=== PATIENT | male | born 1925 | race Caucasian/White ===

== ENCOUNTER 2016-12-14 08:09 | Outpatient (CLI) | payer MEDICARE ==
[2016-12-14 08:53] LABS: ALT (SGPT) 19 U/L (0-55); AST (SGOT) 27 U/L (5-34); Alkaline Phosphatase 66 U/L (40-150); Anion Gap 15 mmol/L (10-20); BUN (Urea Nitrogen) 21 mg/dL (8.4-25.7); Calc. Creatinine Clearance 0 mL/min (70-130); Calcium 9.7 mg/dL (7.8-10.44); Carbon Dioxide 34 mmol/L (23-31); Cardiac Risk 2.3 (Less than 4.5); Chloride 98 mmol/L (98-107); Cholesterol 126 mg/dL (< 200 Desired); Estimated GFR-MDRD 71; Globulin 2.5 g/dL (2.4-3.5); Glucose 110 mg/dL (83-110); HDL Cholesterol 55 mg/dL (>60 Neg Risk); LDL Cholesterol, Calculated 60 mg/dL; Potassium 3.3 mmol/L (3.5-5.1); Protein, Total 6.5 g/dL (5.8-8.1); Sodium 144 mmol/L (136-145); Triglycerides 56 mg/dL (Less than 150)
== END 2016-12-14 08:10 ==
LOC: MADLAB 08:09
PROVIDERS: ATTEND Internal Medicine Cardiovascular Disease
DX: E78.00 Pure hypercholesterolemia, unspecified (principal)
CPT/HCPCS: 36415; 80053; 80061

== ENCOUNTER 2017-07-04 03:14 | Emergency (ER) | payer MEDICARE ==
[2017-07-04] MEDS ORDERED: Albuterol Sulfate 2.5 mg/0.5 ml Neb ONE (03:41)
[2017-07-04] MEDS ORDERED: Furosemide 40 MG/4 ML VIAL ONE (03:41)
[2017-07-04 03:44] LABS: #Basophils 0.1 thou/uL (0.0-0.2); #Eosinphils 0.1 thou/uL (0.0-0.7); #Lymphocytes 1.9 thou/uL (1.20-3.40); #Monocytes 0.5 thou/uL (0.11-0.59); #Neutrophils 7.3 thou/uL (1.40-6.50); %Basophils 1.2 % (0.0-1.0); %Eosinophils 0.7 % (0.0-10.0); %Lymphocytes 19.2 % (21.0-51.0); %Monocytes 4.6 % (0.0-10.0); %Neutrophils 74.4 % (42.0-75.0); Hemoglobin 15.3 g/dL (14.0-18.0); Mean Corpuscular HGB CONC 32.4 g/dL (32.0-36.0); Mean Corpuscular Hemoglobin 31.8 pg (27.0-31.0); Mean Corpuscular Volume 98.3 fl (80.0-94.0); Mean Platelet Volume 7.2 fL (7.4-10.4); Platelet Count 212 thou/uL (130-400); RBC Distribution Width 13.3 % (11.5-14.5); Red Blood Cell (RBC) Count 4.82 mill/uL (4.70-6.10); White Blood Cell (WBC) Count 9.8 thou/uL (4.8-10.8)
[2017-07-04 03:58] LABS: ALT (SGPT) 26 U/L (8-55); AST (SGOT) 34 U/L (5-34); Albumin 4.1 g/dL (3.4-4.8); Alkaline Phosphatase 68 U/L (40-150); Anion Gap 22 mmol/L (10-20); BUN (Urea Nitrogen) 25 mg/dL (8.4-25.7); CK (CPK) 92 U/L (30-200); Calc. Creatinine Clearance 0 mL/min (70-130); Calcium 10.2 mg/dL (7.8-10.44); Carbon Dioxide 26 mmol/L (23-31); Chloride 101 mmol/L (98-107); Estimated GFR-MDRD 54; Globulin 2.7 g/dL (2.4-3.5); Glucose 197 mg/dL (83-110); Magnesium 1.9 mg/dL (1.6-2.6); Potassium 3.9 mmol/L (3.5-5.1); Protein, Total 6.8 g/dL (5.8-8.1); Sodium 145 mmol/L (136-145)
[2017-07-04 03:59] LABS: PTT 26.6 SEC (22.9-36.1)
[2017-07-04 04:00] LABS: D-Dimer Test 1.54 *mcg/mL (0.27-0.43); INR-International Normal Ratio 1.1; Prothrombin Time 13.9 SEC (12.0-14.7)
[2017-07-04] MEDS ORDERED: cefTRIAXone\\ROCEPHIN 2 GM VIAL ONE (04:06)
[2017-07-04] MEDS ORDERED: Dexamethasone 10 MG/ML VIAL ONE (04:06)
[2017-07-04] MEDS ORDERED: Fentanyl 100 MCG/2 ML VIAL ONE ×2 (04:31)
[2017-07-04 04:32] LABS: CKMB 1.4 ng/mL (0-6.6)
[2017-07-04 04:36] LABS: Troponin I 0.208 ng/mL (< 0.028)
[2017-07-04 05:51] LABS: pH (venous) 7.42 (7.35-7.45)
[2017-07-04 05:52] LABS: Base Excess 4.7 mEq/L (-2 - +2); Hemoglobin (Hb) 15.1 g/dL (12.6-17.4)
--- NOTE | 2017-07-04 08:25 | RAD ---
PORTABLE CHEST: COMPARISON: 06/11/17 study. HISTORY: Dyspnea. FINDINGS: Heart size is enlarged. Pulmonary vessels do not appear engorged. Postop sternotomy changes are se en. Some slightly increased interstitial changes in the bases which could represent some atelectasi s. Changes are slightly more prominent in the right base. IMPRESSION: Cardiomegaly with some slightly increased interstitial changes in the lung bases suggestive of atele ctasis versus minimal developing infiltrate. Clinical correlation and followup chest films are kyle vasques. POS: OFF
[2017-07-04] MEDS ORDERED: Lidocaine 2% PF 100 mg/5 ml Syringe ONE (09:35)
[2017-07-04] MEDS ORDERED: Sodium Chloride 0.9% 100 ML BAG ONE (09:35)
== END 2017-07-04 05:15 | disposition short-term general hospital (02) ==
LOC: MADERS 03:14
DX: J80 Acute respiratory distress syndrome (principal); I11.0 Hypertensive heart disease with heart failure; I50.9 Heart failure, unspecified; I48.91 Unspecified atrial fibrillation; F17.220 Nicotine dependence, chewing tobacco, uncomplicated
CPT/HCPCS: 51702; 71010; 80053; 82550; 82553; 82805; 83605; 83735; 83880; 84484; 85025; 85379; 85610; 85730; 87040; 87086; 93005; 94644; 94760; 96374; 96375; J0282; J0696; J1100; J1940; J2001; J3010; J7050; J7070; J7611